=== PATIENT | female | born 1965 | race Caucasian/White ===

== ENCOUNTER 2025-03-26 11:30 | Emergency (ER) | payer BC ==
[2025-03-26] MEDS: Ketorolac 60 MG/2 ML SDV IM ONE (13:17)
== END 2025-03-26 13:31 | disposition home or self-care (01) ==
LOC: JD.ED 11:30
DX: M71.21 Synovial cyst of popliteal space [Baker], right knee (principal); Z88.1 Allergy status to other antibiotic agents
CPT/HCPCS: 73700-26-RT; 73700-RT; 96372; 99283; J1885

== ENCOUNTER 2025-04-17 11:48 | Emergency (ER) | payer BC | END 2025-04-17 13:18 | disposition home or self-care (01) | LOC: JD.ED 11:48 | DX: S52.571A Other intraarticular fracture of lower end of right radius, initial encounter for closed fracture (principal); Z88.0 Allergy status to penicillin; Z88.1 Allergy status to other antibiotic agents; W22.8XXA Striking against or struck by other objects, initial encounter | CPT/HCPCS: 29125; 73110-26-RT; 73110-RT; 99283-25 ==